=== PATIENT | female | born 1965 | race Caucasian/White ===

== ENCOUNTER → 2018-06-24 07:30 | Outpatient (CLI) | payer BC | END | disposition home or self-care (01) | LOC: D.CT 07:30 | DX: R91.1 Solitary pulmonary nodule (principal) ==

== ENCOUNTER → 2018-10-10 10:05 | Outpatient (CLI) | payer BC | END | disposition home or self-care (01) | LOC: D.CT 09-26 10:00 | DX: R91.1 Solitary pulmonary nodule (principal) ==

== ENCOUNTER → 2018-12-16 09:43 | Outpatient (CLI) | payer BC | END | disposition home or self-care (01) | LOC: D.RT 09:43 | PROVIDERS: ATTEND Internal Medicine Pulmonary Disease | DX: J43.9 Emphysema, unspecified (principal) ==